=== PATIENT | male | born 2005 ===

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

== ENCOUNTER 2023-07-09 18:19 | Emergency (ER) | payer SELFPAY ==
[~2023-07-09] VITALS: Ht 165.1 cm; Wt 102.0 kg
[~2023-07-09 18:19] MED LIST changes: +ERYT1OIN6 OP
[2023-07-09] MEDS ORDERED: KETOROLAC INJ 30 MG/ML VIAL IVP ONE (19:30)
[2023-07-09 19:32] LABS: BACTERIA,URINE NEGATIVE /HPF; BILIRUBIN,URINE NEGATIVE (NEGATIVE); CLARITY,URINE CLEAR; COLOR,URINE YELLOW; GLUCOSE, URINE (UA) NEGATIVE (NEGATIVE); KETONES,URINE NEGATIVE (NEGATIVE); LEUKOCYTE ESTERASE ,URINE NEGATIVE (NEGATIVE); NITRITE,URINE NEGATIVE (NEGATIVE); PROTEIN,URINE NEGATIVE (NEGATIVE)
[2023-07-09 19:41] LABS: BASOPHILS # (AUTO) 0.1 10^3/uL (0.0-0.1); BASOPHILS % (AUTO) 1 % (0-10); EOSINOPHILS # (AUTO) 0.6 10^3/uL (0.0-0.3); EOSINOPHILS % (AUTO) 5 % (0-10); HEMATOCRIT 44 % (40-54); HEMOGLOBIN 14.7 g/dL (13.3-17.7); LYMPHOCYTES # (AUTO) 2.6 10^3/uL (1.0-4.0); LYMPHOCYTES % (AUTO) 21 % (12-44); MEAN CORPUSCULAR HEMOGLOBIN 29 pg (25-34); MEAN CORPUSCULAR HGB CONC 34 g/dL (32-36); MEAN CORPUSCULAR VOLUME 85 fL (80-99); MEAN PLATELET VOLUME 11.7 fL (9.0-12.2); MONOCYTES # (AUTO) 0.9 10^3/uL (0.0-1.0); MONOCYTES % (AUTO) 7 % (0-12); NEUTROPHILS # (AUTO) 8.1 10^3/uL (1.8-7.8); NEUTROPHILS % (AUTO) 66 % (42-75); PLATELET COUNT 247 10^3/uL (130-400); WHITE BLOOD COUNT 12.3 10^3/uL (4.3-11.0)
--- NOTE | 2023-07-09 19:50 | ED Abdominal Pain ---
General Chief Complaint: Abdominal/GI Problems Stated Complaint: AB PAIN Source of Information: Patient Exam Limitations: No Limitations (ZIA MELARA) History of Present Illness Date Seen by Provider: Jul 09, 2023 Time Seen by Provider: 19:48 Initial Comments Patient is a 18-year-old male who presents the ED with diffuse abdominal pain. Pain started 1 week ago. Pain is described as crampy and sharp and constant. Patient has been taken Pepto-Bismol without much improvement. Pain does not radiate. States he had a bowel movement today that was soft. No pain with urination frequent urination or dark urine. Denies fever, chills, chest pain, shortness of breath. Has been getting no relief with Pepto-Bismol. No history of similar symptoms. No history of previous surgeries. Denies of any recent travels or eating anything different. No known medical problems (ZIA MELARA) Allergies and Home Medications Allergies Coded Allergies: No Known Drug Allergies (Unverified , 11/25/19) Patient Home Medication List Home Medication List Reviewed: Yes (ZIA MELARA) Docusate Sodium (Colace) 100 Mg Capsule, 100 MG PO BID Prescribed by: IFEANYI SMALLS on 11/28/19 1009 Erythromycin Base (Erythromycin Opthalmic Ointment) 5 Mg/Gram (0.5 %) Oint...g., 0 OP Q6H Prescribed by: Bigg Pichardo on 10/21/22 1612 Hydrocodone Bit/Acetaminophen (Lortab 5 Mg Tablet) 1 Tab Tab, 1 TAB PO Q4-6HR Prescribed by: IFEANYI SMALLS on 11/28/19 1009 Review of Systems Review of Systems Constitutional: No chills, No diaphoresis EENTM: No Double Vision, No Eye Pain Respiratory: Denies Cough, Denies Orthopnea Cardiovascular: Denies Chest Pain Gastrointestinal: Abdominal Pain; Denies Diarrhea, Denies Nausea, Denies Vomiting Genitourinary: Denies Burning, Denies Discharge, Denies Drainage, Denies Frequency Musculoskeletal: No joint pain Skin: No change in color, No change in hair/nails (ZIA MELARA) All Other Systems Reviewed Negative Unless Noted: Yes (ZIA MELARA) Past Omsqyuv-Wahhoh-Umkkgi Hx Immunizations Up To Date PED Vaccines UTD: Yes (ZIA MELARA) Seasonal Allergies Seasonal Allergies: No (ZIA MELARA) Past Medical History Surgeries: No Respiratory: No Cardiac: No Neurological: No Genitourinary: No Gastrointestinal: No (ing hernia) Musculoskeletal: No Endocrine: No HEENT: No Cancer: No Psychosocial: No Integumentary: No Blood Disorders: No (ZIA MELARA) Physical Exam Vital Signs Vital Signs - First Documented 07/09/23 07/09/23 19:15 21:06 Temp 36.2 Pulse 102 Resp 18 B/P (MAP) 135/87 (103) Pulse Ox 98 O2 Delivery Room Air (CRYSTAL NOONAN MD) Vital Signs Capillary Refill : (ZIA MELARA) Height/Weight/BMI Height: '" Weight: lbs. oz. kg; 41.00 BMI Method: General Appearance: WD/WN, no apparent distress HEENT: PERRL/EOMI, normal ENT inspection, TMs normal, pharynx normal Neck: non-tender, full range of motion, supple Respiratory: chest non-tender, lungs clear, normal breath sounds, no respiratory distress, no accessory muscle use Cardiovascular: regular rate, rhythm, no edema, no gallop, no JVD Gastrointestinal: normal bowel sounds, soft, no organomegaly, no pulsatile mass, tenderness (Diffuse abdominal tenderness. Normal bowel sounds throughout. No rebound or guarding.) Extremities: normal range of motion, non-tender, normal inspection, no pedal edema Back: normal inspection, no CVA tenderness, no vertebral tenderness Neurologic/Psychiatric: tomography technologist II-XII nml as tested, no motor/sensory deficits, alert, normal mood/affect, oriented x 3 Skin: normal color, warm/dry (ZIA MELARA) Progress/Results/Core Measures Results/Orders Lab Results Laboratory Tests Test 07/09/23 19:15 07/09/23 19:30 Range/Units Urine Color YELLOW Urine Clarity CLEAR Urine pH 6.0 5-9 Urine Specific [place] 1.010 L 1.016-1.022 Urine Protein NEGATIVE NEGATIVE Urine Glucose (UA) NEGATIVE NEGATIVE Urine Ketones NEGATIVE NEGATIVE Urine Nitrite NEGATIVE NEGATIVE Urine Bilirubin NEGATIVE NEGATIVE Urine Urobilinogen 0.2 < = 1.0 MG/DL Urine Leukocyte Esterase NEGATIVE NEGATIVE Urine RBC (Auto) TRACE H NEGATIVE Urine RBC NONE /HPF Urine WBC NONE /HPF Urine Crystals NONE /LPF Urine Bacteria NEGATIVE /HPF Urine Casts NONE /LPF Urine Mucus NEGATIVE /LPF Urine Culture Indicated NO White Blood Count 12.3 H 4.3-11.0 10^3/uL Red Blood Count 5.11 4.30-5.52 10^6/uL Hemoglobin 14.7 13.3-17.7 g/dL Hematocrit 44 40-54 % Mean Corpuscular Volume 85 80-99 fL Mean Corpuscular Hemoglobin 29 25-34 pg Mean Corpuscular Hemoglobin Concent 34 32-36 g/dL Red Cell Distribution Width 13.5 10.0-14.5 % Platelet Count 247 130-400 10^3/uL Mean Platelet Volume 11.7 9.0-12.2 fL Immature Granulocyte % (Auto) 0 % Neutrophils (%) (Auto) 66 42-75 % Lymphocytes (%) (Auto) 21 12-44 % Monocytes (%) (Auto) 7 0-12 % Eosinophils (%) (Auto) 5 0-10 % Basophils (%) (Auto) 1 0-10 % Neutrophils # (Auto) 8.1 H 1.8-7.8 10^3/uL Lymphocytes # (Auto) 2.6 1.0-4.0 10^3/uL Monocytes # (Auto) 0.9 0.0-1.0 10^3/uL Eosinophils # (Auto) 0.6 H 0.0-0.3 10^3/uL Basophils # (Auto) 0.1 0.0-0.1 10^3/uL Immature Granulocyte # (Auto) 0.0 0.0-0.1 10^3/uL Sodium Level 139 135-145 MMOL/L Potassium Level 3.8 3.6-5.0 MMOL/L Chloride Level 106 98-107 MMOL/L Carbon Dioxide Level 22 21-32 MMOL/L Anion Gap 11 5-14 MMOL/L Blood Urea Nitrogen 14 7-18 MG/DL Creatinine 0.95 0.60-1.30 MG/DL Estimat Glomerular Filtration Rate 118 BUN/Creatinine Ratio 15 Glucose Level 102 70-105 MG/DL Calcium Level 8.9 8.5-10.1 MG/DL Corrected Calcium 8.6 8.5-10.1 MG/DL Total Bilirubin 0.3 0.1-1.0 MG/DL Aspartate Amino Transf (AST/SGOT) 18 5-34 U/L Alanine Aminotransferase (ALT/SGPT) 23 0-55 U/L Alkaline Phosphatase 89 40-136 U/L Total Protein 7.7 6.4-8.2 GM/DL Albumin 4.4 3.2-4.5 GM/DL Lipase 18 8-78 U/L (CRYSTAL NOONAN MD) My Orders Orders - CRYSTAL NOONAN MD Ua Culture If Indicated (07/09/23 18:23) (CRYSTAL NOONAN MD) Medications Given in ED Current Medications Medications Dose Ordered Sig/Darrian Route Start Time Stop Time Status Last Admin Dose Admin Ketorolac Tromethamine 30 mg ONCE ONCE IVP 07/09/23 19:30 07/09/23 19:31 DC 07/09/23 19:41 30 MG (CRYSTAL NOONAN MD) Vital Signs/I&O 07/09/23 07/09/23 19:15 21:06 Temp 36.2 37.0 Pulse 102 90 Resp 18 16 B/P (MAP) 135/87 (103) 133/69 Pulse Ox 98 99 O2 Delivery Room Air (CRYSTAL NOONAN MD) Departure Communication (PCP) Patient presents ED with diffuse abdominal pain for the past week. Differential diagnosis, colitis, constipation, enteritis, small bowel obstruction, appendicitis. Afebrile. Denies of any vomiting or diarrhea. States he has normal bowel movements. Patient Has been taking Pepto-Bismol without much imp rovement. CBC, CMP, lipase was ordered. Slight elevated white blood count of 12. Chemistry grossly unremarkable. Urinalysis negative for infection with trace hematuria. Patient received a dose of Toradol with improvement of pain. CT abdomen pelvis was negative for acute abnormality. Denies any chest pain or shortness of breath. No previous abdominal surgery. Does not appear surgical. Other etiologies would be food intolerance, gastritis. Seems to be somewhat worse with eating. Suggest taking Pepcid. If abdominal discomfort with eating may consider Gas-X something called in. Discussed watching foods that you eat. If any worsening symptoms such as pain, vomiting to return back to ED. Follow- up your PCP in 2 to 3 days for reevaluation. (ZIA MELARA) Impression Primary Impression: Abdominal pain Disposition: 01 HOME, SELF-CARE Condition: Stable Departure-Patient Inst. Decision time for Depature: 21:00 (ZIA MELARA) Referrals: [facility] [place],LOCAL PHYSICIAN (PCP) Primary Care Physician Patient Instructions: Abdominal Pain, Adult ED Add. Discharge Instructions: Recommend taking Pepcid for indigestion. Gas-X for bloating or abdominal discomfort. Recommend staying hydrated. Follow-up your PCP within the next week for reevaluation. All discharge instructions reviewed with patient and/or family. Voiced understanding. ATTENDING PHYSICIAN NOTE: I was physically present as attending physician in the emergency department during the care of this patient, but I was not directly involved in the decision making or delivery of care for this patient. (CRYSTAL NOONAN MD) ZIA MELARA Jul 09, 2023 19:50 CRYSTAL NOONAN MD Jul 10, 2023 07:29
[2023-07-09 20:16] LABS: ALBUMIN 4.4 GM/DL (3.2-4.5); BILIRUBIN,TOTAL 0.3 MG/DL (0.1-1.0); CALCIUM 8.9 MG/DL (8.5-10.1); CREATININE SERUM 0.95 MG/DL (0.60-1.30); POTASSIUM 3.8 MMOL/L (3.6-5.0); TOTAL PROTEIN 7.7 GM/DL (6.4-8.2)
--- NOTE | 2023-07-09 20:23 | Diagnostic Imaging Report ---
PROCEDURE: CT abdomen and pelvis without contrast. TECHNIQUE: Multiple contiguous axial images were obtained through the abdomen and pelvis without the use of intravenous contrast. Auto Exposure Controls were utilized during the CT exam to meet ALARA standards for radiation dose reduction. INDICATION: Low abdominal pain x 4 days. COMPARISON: None. FINDINGS: Included portions of the lung bases are clear. CT ABDOMEN: Normal appendix is identified. Small bowel loops are nondilated. Moderate air and stool is present scattered throughout the colon. The kidneys, adrenal glands, spleen, pancreas and liver have an unremarkable noncontrast CT appearance. There is no loculated fluid collection, free fluid or free air within the abdomen. No abnormal mesenteric or retroperitoneal adenopathy is seen. Osseous structures show no acute abnormality. CT PELVIS: Urinary bladder is unopacified. No calculus is seen within the urinary bladder. There is no loculated fluid collection, free fluid or free air. No abnormal lymph node is seen. Osseous structures show no acute abnormality IMPRESSION: No acute abnormality is seen within the abdomen or pelvis. Dictated by: Dictated on workstation # [id number]
[2023-07-09 21:06] VITALS: BP 133/69
== END 2023-07-09 21:09 | disposition home or self-care (01) ==
LOC: EDUNIT# 18:19 → ER 18:21
DX: R10.84 Generalized abdominal pain (principal)
CPT/HCPCS: 36415; 74176; 80053; 81000; 83690; 85025